=== PATIENT | male | born 1980 | race Caucasian/White ===

== ENCOUNTER 2020-10-20 17:07 | Emergency (ER) | payer SELFPAY ==
--- OUTSIDE RECORDS SUMMARY | 2020-10-20 17:09 | XMS REPORT | Continuity of Care Document ---
:1980 Author Organization [facility] t Address [address] [place] [address] Care Team Providers Name Role Phone Matheus Tanner DO Attending Clinician Problems This patient has no known problems. Allergies, Adverse Reactions, Alerts This patient has no known allergies or adverse reactions. Medications This patient has no known medications. Procedures This patient has no known procedures. Encounters Start End Encounter Admission Attending Care Care Encounter Source Date/Time Date/Time Type Type Clinicians Facility Department ID 2020-03-18 2020-03-18 Emergency JEFE Tanner [id number] 20:57:00 22:14:00 Matheus Jean [id number] [place] [id number] [place] [id number] Results This patient has no known results.
[2020-10-20 17:55] LABS: Absolute Lymphocytes (CBC) 0.6 K/uL (0.7-4.9); Basophils % 0.1 % (0-1.3); Hematocrit 54.2 % (39.6-49.0); Lymphocytes % 4.9 % (15.3-44.8); MPV 8.9 fL (7.6-11.3); RBC Red Blood Cell Count 6.19 M/uL (4.33-5.43)
[2020-10-20 18:14] LABS: Albumin 4.8 g/dL (3.4-5.0); Bilirubin Direct 0.2 mg/dL (0-0.2); Protein, Total 8.9 g/dL (6.4-8.2)
[2020-10-20 19:21] LABS: Blood Morphology Comment NOT SEEN (NOT SEEN); Platelet Estimate ADEQ; White Blood Cell Scan OK (OK)
--- NOTE | 2020-10-20 19:22 | RAD REPORT ---
EXAM DESCRIPTION: RAD - Chest Single View - 10/20/2020 7:15 pm CLINICAL HISTORY: COUGH, chills, body COMPARISON: December 2012 TECHNIQUE: AP portable chest image was obtained 10/20/2020 7:15 pm . FINDINGS: Lungs are clear. Interstitial pattern is not substantially different. Heart and vasculatur e are normal. No measurable pleural effusion and no pneumothorax. No acute bony abnormality seen. No acute aortic findings suspected. IMPRESSION: No acute cardiopulmonary process.
[2020-10-20] MEDS ORDERED: ONDANSETRON 4 MG/2 ML VIAL ONE ×2 (19:23→21:41)
[2020-10-20] MEDS ORDERED: NA CHLORIDE 0.9% 1,000 ML ONE ×3 (19:23→22:14)
--- NOTE | 2020-10-20 20:05 | RAD REPORT ---
EXAM DESCRIPTION: CT - Abdomen Pelvis W Contrast - 10/20/2020 7:48 pm CLINICAL HISTORY: ABD PAIN COMPARISON: No comparisons TECHNIQUE: Biphasic, helical CT imaging of the abdomen and pelvis was performed following 100 ml non -ionic IV contrast. Oral contrast was given. All CT scans are performed using dose optimization technique as appropriate and may include automated exposure control or mA/KV adjustment according to patient size. FINDINGS: No suspicious findings in the lung bases. The liver, spleen, and pancreas show no suspicious findings. Gallbladder and biliary tree are also wi thout suspicious finding. Symmetric renal function is seen with no hydronephrosis or suspicious renal mass. No pyelonephritis o r acute parenchymal process. No bladder abnormalities. No adrenal abnormalities. No dilated bowel loops or bowel wall thickening. No free air, free fluid or inflammatory stranding. No hernia, mass or bulky lymphadenopathy. No suspicious bony findings. IMPRESSION: Contrast enhanced CT abdomen and pelvis showing no significant or suspicious finding.
[2020-10-20] MEDS ORDERED: PROMETHAZINE INJ 25 MG/ML AMP ONE (21:27)
--- NOTE | 2020-10-20 22:50 | ER ---
Nurse's Notes [facility] Name: Kishore Gilbert Age: 40 yrs Sex: Male : 1980 Arrival Date: 10/20/2020 Time: 17:09 Bed 26 Private MD: Diagnosis: Nausea with vomiting, unspecified Presentation: 10/20 17:33 Chief complaint: Patient states: been vomiting since last night. cant keep anything tw2 down, has had chills off and on. has asthma and has been coughing. Coronavirus screen: chills, cough unrelated to allergies, difficulty breathing, fatigue, vomiting. Client presents with at least one sign or symptom that may indicate coronavirus-19. Standard/surgical mask placed on the client. Provider contacted for isolation considerations. Ebola Screen: Patient denies travel to an Ebola-affected area in the 21 days before illness onset. Initial Sepsis Screen: Does the patient meet any 2 criteria? No. Patient's initial sepsis screen is negative. Does the patient have a suspected source of infection? No. Patient's initial sepsis screen is negative. Risk Assessment: Do you want to hurt yourself or someone else? Patient reports no desire to harm self or others. Onset of symptoms was October 20, 2020. 17:33 Method Of Arrival: Wheelchair tw2 17:33 Acuity: GEORGINA 3 tw2 Triage Assessment: 17:35 General: Appears ill, Behavior is quiet. Pain: Complains of pain in abdomen. GI: tw2 Reports lower abdominal pain, upper abdominal pain, intolerance of fluids, intolerance of food, nausea, vomiting. Historical: - Allergies: 17:35 No Known Allergies; tw2 - Home Meds: 17:35 None [Active]; tw2 - PMHx: 17:35 None; tw2 - Immunization history:: Adult Immunizations. - Social history:: Smoking status: Patient denies any tobacco usage or history of. Patient uses street drugs, marijuana, daily. Screenin:07 Abuse screen: Denies threats or abuse. Denies injuries from another. Nutritional zb screening:. Tuberculosis screening: No symptoms or risk factors identified. Fall Risk None identified. Assessment: 19:10 General: Appears uncomfortable, Behavior is cooperative, restless, Reports chills for ap3 12-24 hours. Pain: Denies pain. Neuro: Level of Consciousness is awake, alert, obeys commands, Oriented to person, place, time, situation, Appropriate for age. Cardiovascular: Capillary refill < 3 seconds Patient's skin is warm and dry. Respiratory: Parent/caregiver reports the patient having hx of athsma. GI: Abdomen is non-distended. : No signs and/or symptoms were reported regarding the genitourinary system. EENT: No signs and/or symptoms were reported regarding the EENT system. Derm: No signs and/or symptoms reported regarding the dermatologic system. Musculoskeletal: patient actively shivering. 21:43 Reassessment: Patient and/or family updated on plan of care and expected duration. Pain ap3 level reassessed. Patient is alert, oriented x 3, equal unlabored respirations, skin warm/dry/pink. 22:49 Reassessment: Patient states symptoms have improved. ap3 Vital Signs: 17:33 BP 122 / 81; Pulse 62; Resp 18; Temp 97.9(TE); Pulse Ox 100% on R/A; Weight 99.79 kg tw2 (R); 19:07 BP 115 / 77; Pulse 86; Resp 18; Temp 98.5(O); Pulse Ox 100% on R/A; zb 20:04 BP 107 / 68; Pulse 71; Resp 21; Pulse Ox 100% on R/A; ap3 20:50 BP 90 / 59; Pulse 89; Resp 17; Pulse Ox 100% on R/A; ap3 21:42 BP 118 / 80; Pulse 87; Resp 16; Pulse Ox 100% on R/A; ap3 22:27 BP 124 / 88; Pulse 84; Pulse Ox 100% on R/A; ap3 ED Course: 17:09 Patient arrived in ED. mr 17:32 Jp Ricketts PA is PHCP. cp 17:32 Jp Hutchison MD is Attending Physician. cp 17:35 Triage completed. tw2 17:36 Arm band placed on. tw2 17:47 Initial lab(s) drawn, by me, sent to lab. Inserted saline lock: 22 gauge in right iw antecubital area, using aseptic technique. Blood collected. 18:59 Tracey Soriano, RN is Primary Nurse. ap3 19:15 XRAY Chest (1 view) In Process Unspecified. EDMS 19:15 Patient has correct armband on for positive identification. Bed in low position. Call ap3 light in reach. Side rails up X2. Adult w/ patient. Pulse ox on. NIBP on. Door closed. Noise minimized. Warm blanket given. 19:48 CT Abd/Pelvis - IV Contrast Only In Process Unspecified. EDMS 19:54 Primary Nurse role handed off by Tracey Soriano RN mw2 20:00 Tracey Soriano RN is Primary Nurse. ap3 Administered Medications: 19:09 Drug: NS 0.9% 1000 ml Route: IV; Rate: 1 bolus; Site: right antecubital; zb 19:10 Not Given (Duplicate Order): Zofran (Ondansetron) 4 mg PO once zb 19:10 Drug: Zofran (Ondansetron) 4 mg Route: IVP; Site: right antecubital; zb 20:03 Follow up: Response: No adverse reaction ap3 20:45 Drug: NS 0.9% 1000 ml Route: IV; Rate: 1 bolus; Site: right antecubital; zb 21:58 Follow up: IV Status: Completed infusion; IV Intake: 1000ml ap3 21:09 Drug: Phenergan (promethazine) 25 mg Route: IVP; Site: right antecubital; zb 21:58 Follow up: Response: No adverse reaction; Nausea is decreased ap3 23:09 Follow up: Response: No adverse reaction ap3 21:24 Drug: Zofran (Ondansetron) 4 mg Route: IVP; Site: right antecubital; zb 21:58 Follow up: Response: No adverse reaction; Nausea is decreased ap3 23:10 Follow up: Response: No adverse reaction ap3 21:58 Drug: NS 0.9% 1000 ml Route: IV; Rate: 250 ml/hr; Site: right antecubital; ap3 23:10 Follow up: IV Status: Completed infusion ap3 Intake: 21:58 IV: 1000ml; Total: 1000ml. ap3 Outcome: 22:50 Discharge ordered by MD. samuel 23:10 Patient left the ED. ap3 Signatures: Dispatcher [employer] [facility] Heather Clayton Irene, RN RN iw Jp Ricketts PA PA cp Wise, Tara, RN RN tw2 Tracey Soriano, RN RN ap3 Rolando Whyte 2 Maday Ballesteros, RN RN zb Corrections: (The following items were deleted from the chart) 17:36 17:35 PMHx: None; [email or web address] tw
--- NOTE | 2020-10-20 22:50 | EDPHYS ---
Physician Documentation [facility] Name: Kishore Gilbert Age: 40 yrs Sex: Male : 1980 Arrival Date: 10/20/2020 Time: 17:09 Bed 26 Private MD: ED Physician Jp Hutchison HPI: 10/20 17:45 This 40 yrs old Male presents to ER via Wheelchair with complaints of Fever, cp Vomiting, Asthma Exacerbation. 17:45 The patient presents to the emergency department with nausea, with "dry heaves", cp vomiting, that is continuous, described as bilious. 17:45 Onset: The symptoms/episode began/occurred last night. The patient reports fever, not cp measured (subjective). 17:45 Associated signs and symptoms: Pertinent positives: cough, Pertinent negatives: altered cp mental status, diarrhea, shortness of breath. Historical: - Allergies: 17:35 No Known Allergies; tw2 - Home Meds: 17:35 None [Active]; tw2 - PMHx: 17:35 None; tw2 - Immunization history:: Adult Immunizations. - Social history:: Smoking status: Patient denies any tobacco usage or history of. Patient uses street drugs, marijuana, daily. ROS: 17:50 Abdomen/GI: Positive for abdominal pain, nausea and vomiting, of the epigastric area, cp Negative for diarrhea, constipation, hematemesis, black/tarry stool, rectal bleeding. 17:50 Constitutional: Positive for body aches, poor PO intake, Negative for fever. cp Exam: 18:00 Constitutional: The patient appears in no acute distress, alert, awake, cp non-diaphoretic, non-toxic, well developed, well nourished, uncomfortable. 18:00 Head/Face: Normocephalic, atraumatic. cp 18:00 Eyes: Periorbital structures: appear normal, Conjunctiva: normal, no exudate, no injection, Sclera: no appreciated abnormality, Lids and lashes: appear normal, bilaterally. 18:00 ENT: External ear(s): are unremarkable, Nose: is normal, Mouth: Lips: moist, Oral mucosa: pink and intact, moist, Posterior pharynx: Airway: no evidence of obstruction, patent. 18:00 Neck: ROM/movement: is normal, is supple, without pain, no range of motions limitations. 18:00 Chest/axilla: Inspection: normal, Palpation: is normal, no crepitus, no tenderness. 18:00 Cardiovascular: Rate: normal, Rhythm: regular. 18:00 Respiratory: the patient does not display signs of respiratory distress, Respirations: normal, no use of accessory muscles, no retractions, labored breathing, is not present, Breath sounds: are clear throughout, no decreased breath sounds, no stridor, no wheezing. 18:00 Abdomen/GI: Inspection: abdomen appears normal, Bowel sounds: active, all quadrants, Palpation: soft, in all quadrants, mild abdominal tenderness, in all quadrants, rebound tenderness, is not appreciated, involuntary guarding, is not appreciated. 18:00 Back: pain, is absent, ROM is normal. 18:00 Neuro: Orientation: to person, place \\T\\ time. Mentation: is normal, Cerebellar function: is grossly normal, Motor: moves all fours, strength is normal, Sensation: is normal. Vital Signs: 17:33 BP 122 / 81; Pulse 62; Resp 18; Temp 97.9(TE); Pulse Ox 100% on R/A; Weight 99.79 kg tw2 (R); 19:07 BP 115 / 77; Pulse 86; Resp 18; Temp 98.5(O); Pulse Ox 100% on R/A; zb 20:04 BP 107 / 68; Pulse 71; Resp 21; Pulse Ox 100% on R/A; ap3 20:50 BP 90 / 59; Pulse 89; Resp 17; Pulse Ox 100% on R/A; ap3 21:42 BP 118 / 80; Pulse 87; Resp 16; Pulse Ox 100% on R/A; ap3 22:27 BP 124 / 88; Pulse 84; Pulse Ox 100% on R/A; ap3 MDM: 18:53 Patient medically screened. josie 20:15 Data reviewed: vital signs, nurses notes, lab test result(s), radiologic studies, CT cp scan, plain films. 22:50 Counseling: I had a detailed discussion with the patient and/or guardian regarding: the cp historical points, exam findings, and any diagnostic results supporting the discharge/admit diagnosis, lab results, radiology results, to return to the emergency department if symptoms worsen or persist or if there are any questions or concerns that arise at home. 22:50 Response to treatment: the patient's symptoms have markedly improved after treatment, cp patient is well hydrated. VSS. Nausea markedly improved. Vomiting resolved. Will discharge to home for continued monitoring. 10/20 17:36 Order name: Basic Metabolic Panel; Complete Time: 18:56 cp 10/20 18:57 Interpretation: Normal except: GLUC 158; BUN 24; CRE 1.43; GFR 54. cp 10/20 17:36 Order name: CBC with Diff; Complete Time: 19:27 cp 10/20 18:57 Interpretation: Normal except: WBC 12.90; RBC 6.19; HGB 18.5; HCT 54.2; GILL% 90.8; LYM% cp 4.9; NEUT A 11.7; LYMA 0.6. 10/20 17:36 Order name: Hepatic Function; Complete Time: 18:56 cp 10/20 17:36 Order name: Lipase; Complete Time: 18:56 cp 10/20 17:36 Order name: Influenza Screen (a \\T\\ B); Complete Time: 18:56 10/20 18:48 Order name: SARS-COV-2 RT PCR; Complete Time: 18:56 EDMS 10/20 18:57 Order name: XRAY Chest (1 view); Complete Time: 19:27 10/20 19:27 Interpretation: Report reviewed. 10/20 18:58 Order name: CT Abd/Pelvis - IV Contrast Only; Complete Time: 20:09 cp 10/20 19:21 Order name: CBC Smear Scan; Complete Time: 19:27 EDMS 10/20 17:36 Order name: IV Saline Lock; Complete Time: 17:47 10/20 17:36 Order name: Labs collected and sent; Complete Time: 17:47 10/20 20:10 Order name: PO challenge; Complete Time: 20:17 cp Administered Medications: 19:09 Drug: NS 0.9% 1000 ml Route: IV; Rate: 1 bolus; Site: right antecubital; zb 19:10 Not Given (Duplicate Order): Zofran (Ondansetron) 4 mg PO once zb 19:10 Drug: Zofran (Ondansetron) 4 mg Route: IVP; Site: right antecubital; zb 20:03 Follow up: Response: No adverse reaction ap3 20:45 Drug: NS 0.9% 1000 ml Route: IV; Rate: 1 bolus; Site: right antecubital; zb 21:58 Follow up: IV Status: Completed infusion; IV Intake: 1000ml ap3 21:09 Drug: Phenergan (promethazine) 25 mg Route: IVP; Site: right antecubital; zb 21:58 Follow up: Response: No adverse reaction; Nausea is decreased ap3 23:09 Follow up: Response: No adverse reaction ap3 21:24 Drug: Zofran (Ondansetron) 4 mg Route: IVP; Site: right antecubital; zb 21:58 Follow up: Response: No adverse reaction; Nausea is decreased ap3 23:10 Follow up: Response: No adverse reaction ap3 21:58 Drug: NS 0.9% 1000 ml Route: IV; Rate: 250 ml/hr; Site: right antecubital; ap3 23:10 Follow up: IV Status: Completed infusion ap3 Disposition: 23:00 Chart complete. cp Disposition Summary: 10/20/20 22:50 Discharge Ordered Location: Home cp Problem: new cp Symptoms: have improved cp Condition: Stable cp Diagnosis - Nausea with vomiting, unspecified cp Followup: cp - With: Private Physician - When: 2 - 3 days - Reason: Worsening of condition Discharge Instructions: - Discharge Summary Sheet cp - Gastritis, Adult cp - Nausea and Vomiting, Adult cp Forms: - Medication Reconciliation Form cp - Thank You Letter cp - Antibiotic Education cp - Prescription Opioid Use cp Prescriptions: - Zofran 4 mg Oral Tablet - take 1 tablet by ORAL route every 12 hours As needed; 20 tablet; Refills: 0, cp Product Selection Permitted - promethazine 25 mg Oral Tablet - take 1 tablet by ORAL route every 6 hours As needed; 20 tablet; Refills: 0, cp Product Selection Permitted Addendum: 10/23/2020 06:47 Co-signature as Attending Physician, Jp Hutchison MD I agree with the assessment and c jones plan of care. Signatures: Dispatcher [employer] Jp Gao MD MD cha Page, Corey PA Reshma Latham cp, RN RN tw2 Tracey Soriano RN RN ap3 Maday Ballesteros RN RN zb Corrections: (The following items were deleted from the chart) 10/20 17:36 17:35 PMHx: None; tw2 17:54 17:37 CORONAVIRUS+MR.LAB.BRZ ordered. EDMS EDMS
[2020-10-20 23:18] VITALS: O2SAT 100
[2020-10-20 23:20] VITALS: TEMP 98.5
[2020-10-20 23:26] VITALS: BP 124/88
== END 2020-10-20 23:10 | disposition home or self-care (01) ==
LOC: ER 17:07
DX: R50.9 Fever, unspecified (principal); R11.2 Nausea with vomiting, unspecified; J45.901 Unspecified asthma with (acute) exacerbation; Z20.822 Contact with and (suspected) exposure to COVID-19
CPT/HCPCS: 36415; 71045; 74177; 80048; 80076; 83690; 85025; 87804; 96361; 96374; 96375; 99284; J2405; J2550; J7030; Q9967; U0003